=== PATIENT | female | born 1995 | race Caucasian/White ===

== ENCOUNTER 2017-12-06 06:28 | Emergency (ER) | payer OTHER ==
--- NOTE | 2017-12-06 07:06 | ED Physician Documentation ---
PD HPI ABD PAIN - Stated complaint Stated Complaint: ABD PX - Chief complaint Chief Complaint: Abd Pain - History obtained from History obtained from: Patient - History of Present Illness Timing - onset: How many hours ago (3) Timing - duration: Hours (3) Timing - details: Abrupt onset, Constant Pain level max: 7 Pain level now: 7 Quality: Aching, Pain Location: Other (R flank. RUQ) Improved by: Vomiting (nausea, with "dry heaving") Worsened by: Other (nothing) Associated symptoms: Nausea, Dysuria. No: Fever, Hematemesis, Diarrhea, Constipation, Hematuria, Vaginal bleeding, Vaginal dc Similar symptoms before: Has not had sx before Recently seen: Not recently seen Review of Systems Constitutional: denies: Fever, Chills Nose: denies: Rhinorrhea / runny nose, Congestion Throat: denies: Sore throat Respiratory: denies: Cough GI: denies: Bloody / black stool : denies: Now EGA Skin: denies: Rash Musculoskeletal: denies: Neck pain, Back pain Neurologic: denies: Headache PD PAST MEDICAL HISTORY - Past Medical History Past Medical History: No Cardiovascular: None Respiratory: None Neuro: None Endocrine/Autoimmune: None GI: None 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 : None HEENT: None Psych: None Musculoskeletal: None Derm: None - Past Surgical History Past Surgical History: No - Present Medications Home Medications: Ambulatory Orders Medication Instructions Recorded Confirmed Hydrocodone/Acetaminophen 1 - 2 each PO Q6H PRN #14 tablet 12/06/17 [Hydrocodon-Acetaminophen 5-325] Ibuprofen [Motrin] 800 mg PO Q8H PRN #30 tablet 12/06/17 Ondansetron Odt [Zofran] 4 mg TL Q6H PRN #10 tablet 12/06/17 - Allergies Allergies/Adverse Reactions: Allergies Allergy/AdvReac Type Severity Reaction Status Date / Time amoxicillin AdvReac Unknown Verified 12/06/17 06:41 - Social History Does the pt smoke?: No Smoking Status: Never smoker Does the pt drink ETOH?: No Does the pt have substance abuse?: No - Immunizations Immunizations are current?: Yes - POLST Patient has POLST: No PD ED PE NORMAL - Vitals Vital signs reviewed: Yes - General General: Alert and oriented X 3, No acute distress, Well developed/nourished - HEENT HEENT: Moist mucous membranes - Neck Neck: Supple, no meningeal sign - Cardiac Cardiac: RRR, Strong equal pulses - Respiratory Respiratory: No respiratory distress, Clear bilaterally - Abdomen Abdomen: Soft, Non distended, Other (TTP RUQ and R CVAT.) - Back Back: No spinal TTP - Derm Derm: Warm and dry, No rash - Extremities Extremities: No edema - Neuro Neuro: Alert and oriented X 3 - Psych Psych: Normal mood, Normal affect Results - Vitals Vitals: Vital Signs - 24 hr 12/06/17 12/06/17 12/06/17 06:39 08:14 09:45 Temperature 36.1 C L 36.6 C 36.8 C Heart Rate 73 93 89 Respiratory 18 15 15 Rate Blood Pressure 144/99 H 128/84 H 112/78 O2 Saturation 100 100 99 Oxygen O2 Source Room air - Labs Labs: Laboratory Tests 12/06/17 12/06/17 12/06/17 06:50 06:58 06:58 WBC 9.8 RBC 4.56 Hgb 12.3 Hct 38.4 MCV 84.1 MCH 26.9 L MCHC 31.9 L RDW 17.2 H Plt Count 278 MPV 8.2 Neut # 7.0 H Lymph # 1.8 Coal # 0.8 Eos # 0.1 Baso # 0.1 Absolute Nucleated RBC 0.00 Nucleated RBC % 0.0 Sodium 139 Potassium 3.7 Chloride 105 Carbon Dioxide 23 Anion Gap 11.0 BUN 16 Creatinine 0.8 Estimated GFR (MDRD) 91 Glucose 114 H Calcium 9.8 Total Bilirubin 0.6 AST 24 ALT 16 Alkaline Phosphatase 44 Total Protein 7.9 Albumin 4.7 Globulin 3.2 Albumin/Globulin Ratio 1.5 Lipase 23 Urine Color YELLOW Urine Clarity CLEAR Urine pH 5.5 Ur Specific [place] 1.025 Urine Protein NEGATIVE Urine Glucose (UA) NEGATIVE Urine Ketones NEGATIVE Urine Occult Blood LARGE H Urine Nitrite NEGATIVE Urine Bilirubin NEGATIVE Urine Urobilinogen 0.2 (NORMAL) Ur Leukocyte Esterase TRACE H Urine RBC TNTC H Urine WBC 4-5 Ur Squamous Epith Cells MOD Squamous H Urine Bacteria Rare Ur Microscopic Review INDICATED Urine Culture Comments NOT INDICATED Urine HCG, Qual NEGATIVE - Rads (name of study) RUQ US Radiology: Prelim report reviewed, EMP read contemporaneously, See rad report ( Cholelithiasis without evidence of cholecystitis. Mild right hydronephrosis. Possible right renal stones. ) CT abd/pelvis Radiology: Prelim report reviewed, EMP read contemporaneously, See rad report ( Small right renal stones, 4 mm stone in the proximal right ureter with mild obstruction.) PD MEDICAL DECISION MAKING - ED course Complexity details: reviewed results, re-evaluated patient, considered differential, d/w patient ED course: Patient is a 22-year-old female presents to the emergency department with right flank pain, found to have a right ureteral stone. Should pass. Will prescribe pain medications and nausea medications for home. We will have her follow-up with her PCP for further evaluation and care. No evidence of infected stone. Patient counseled regarding signs and symptoms for which I believe and urgent re -evaluation would be necessary. Patient with good understanding of and agreement to plan and is comfortable going home at this time This document was made in part using voice recognition software. While efforts are made to proofread this document, sound alike and grammatical errors may occur. Departure - Departure Disposition: 01 Home, Self Care Clinical Impression: Ureteral stone Condition: Good Instructions: ED Stone Renal W Colic Follow-Up: your,doctor in 1 week [Other] Prescriptions: Hydrocodone/Acetaminophen [Hydrocodon-Acetaminophen 5-325] 1 - 2 each PO Q6H PRN #14 tablet PRN Reason: pain Ibuprofen [Motrin] 800 mg PO Q8H PRN #30 tablet PRN Reason: PAIN &/OR FEVER Ondansetron Odt [Zofran] 4 mg TL Q6H PRN #10 tablet PRN Reason: Nausea / Vomiting Comments: Drink plenty of fluids at home. Return if you worsen. This stone should pass. Do not drink alcohol or drive while on narcotic pain medicine. Note that many narcotic pain relievers also contain tylenol/acetaminophen. Please ensure that your total dose of acetaminophen from all sources does not exceed 3 grams (3000mg) per day. You may constipated on this medication, take a stool softener such as "Colace" twice a day while you are on it. Also recommend a ijnf-sny-bkdyhtv laxative such as senna or MiraLAX any day that you do not have a bowel movement. If you received narcotic pain medication in the emergency department, do not drive or operate machinery for the next 24 hours. Discharge Date/Time: 12/06/17 09:47
[2017-12-06] MEDS ORDERED: KETOROLAC 60 MG/2 ML VIAL IVP STA (07:07)
[2017-12-06] MEDS ORDERED: ONDANSETRON 4 MG/2 ML VIAL IVP STA (07:07)
[2017-12-06] MEDS ORDERED: SODIUM CHLORIDE 0.9% 1,000 ML IV ONE ×2 (07:10)
[2017-12-06 07:15] LABS: BASOPHILS # (AUTO) 0.1 10^3/uL (0.0-0.1); BASOPHILS % (AUTO) 0.5 %; EOSINOPHILS # (AUTO) 0.1 10^3/uL (0.0-0.7); EOSINOPHILS % (AUTO) 1.5 %; HGB - HEMOGLOBIN 12.3 g/dL (12.0-16.0); LYMPHOCYTES # (AUTO) 1.8 10^3/uL (1.5-3.5); LYMPHOCYTES % (AUTO) 18.4 %; MEAN CORPUSCULAR HEMOGLOBIN 26.9 pg (27.0-31.0); MEAN CORPUSCULAR HGB CONC 31.9 g/dL (32.0-36.0); MEAN CORPUSCULAR VOLUME 84.1 fL (81.0-99.0); MEAN PLATELET VOLUME 8.2 fL (7.9-10.8); MONOCYTES # (AUTO) 0.8 10^3/uL (0.0-1.0); NEUTROPHILS % (AUTO) 71.6 %; PLT - PLATELET COUNT 278 10^3/uL (130-450); RED BLOOD COUNT 4.56 10^6/uL (4.20-5.40); RED CELL DISTRIBUTION WIDTH 17.2 % (12.0-15.0); WHITE BLOOD COUNT 9.8 x10^3/uL (4.8-10.8)
[2017-12-06] MEDS ORDERED: KETOROLAC 30 MG/ML VIAL IVP STA (07:17)
[2017-12-06 07:23] LABS: BILIRUBIN,URINE NEGATIVE (NEGATIVE); GLUCOSE, URINE (UA) NEGATIVE (NEGATIVE); KETONES,URINE (UA) NEGATIVE (NEGATIVE); LEUKOCYTE ESTERASE, URINE TRACE (NEGATIVE); NITRITE,URINE NEGATIVE (NEGATIVE); OCCULT BLOOD,URINE LARGE (NEGATIVE); PH,URINE 5.5 PH (5.0-7.5); PROTEIN,URINE NEGATIVE (NEGATIVE); UROBILINOGEN,URINE 0.2 (NORMAL) E.U./dL (NORMAL)
[2017-12-06 07:29] LABS: ALBUMIN 4.7 g/dL (3.2-5.5); ALBUMIN/GLOBULIN RATIO 1.5 (1.0-2.2); BILIRUBIN,TOTAL 0.6 mg/dL (0.2-1.0); CALCIUM 9.8 mg/dL (8.5-10.3); CREATININE 0.8 mg/dL (0.4-1.0); TOTAL PROTEIN 7.9 g/dL (6.7-8.2)
[2017-12-06 07:32] LABS: CLARITY,URINE CLEAR (CLEAR); HCG UR QUAL NEGATIVE
[2017-12-06 07:51] LABS: BACTERIA,URINE Rare /HPF (None Seen); RBC,URINE TNTC /HPF (0-5); SQUAMOUS EPITHELIAL CELL,UR MOD Squamous (<= Few)
[2017-12-06] MEDS ORDERED: LIDOCAINE-MPF 2% 4.5 ML in SODIUM CHLORIDE 0.9% 50 ML IV STA (08:15)
--- NOTE | 2017-12-06 08:17 | Ultrasound Report ---
EXAM: ABDOMEN ULTRASOUND LIMITED, RUQ EXAM DATE: 12/06/2017 08:04 AM. CLINICAL HISTORY: RUQ/R flank pain, possible GB vs Kidney. COMPARISON: None. TECHNIQUE: Real-time scanning was performed with static images obtained. FINDINGS: Liver: Normal in size and echotexture. 14.3 cm. Main portal vein flow: Hepatopetal. Gallbladder: There is a small noncalcified gallstone. There is no gallbladder wall thickening or yoon cholecystic fluid. Biliary System: CBD measures 4 mm. No intrahepatic or extrahepatic ductal dilatation. The right kidney measures 11.2 cm in length. There is mild hydronephrosis. There are 2 small echogeni c foci in the inferior pole which are nonspecific but could represent renal stones. IMPRESSION: Cholelithiasis without evidence of cholecystitis. Mild right hydronephrosis. Possible right renal stones. [facility] Referring Provider Line: [phone] SITE ID: [id number]
--- NOTE | 2017-12-06 09:17 | CT Report ---
EXAM: CT ABDOMEN AND PELVIS (CT KUB) EXAM DATE: 12/06/2017 08:51 AM. CLINICAL HISTORY: R flank pain. COMPARISONS: None. TECHNIQUE: Routine axial helical CT imaging was performed through the abdomen and pelvis without IV c ontrast. Reconstructions: Coronal and sagittal. In accordance with CT protocol optimization, one or more of the following dose reduction techniques w ere utilized for this exam: automated exposure control, adjustment of mA and/or KV based on patient s ize, or use of iterative reconstructive technique. FINDINGS: Lung Bases: Unremarkable. Right Kidney/Ureter: There are Two 2 mm right renal stones. There is a 4 mm stone in the proximal rig ht ureter. There is minimal perinephric stranding. Left Kidney/Ureter: No stones, hydronephrosis, or hydroureter. No perinephric fat stranding. Other Solid Organs: Noncontrast images of the solid organs are grossly unremarkable. Gallbladder/Bile Ducts: Unremarkable. Peritoneal Cavity: No free fluid, free air or rambo adenopathy. Bowel is grossly unremarkable. There is an appendicolith. The appendix has an otherwise normal CT appearance. Pelvic Organs: No bladder stones or wall thickening. Noncontrast images of the visualized pelvic orga ns are unremarkable. Vasculature: Unremarkable. No bone lesions. IMPRESSION: There are small right renal stones. There is a 4 mm stone in the proximal right ureter with mild obst ruction. [facility] Referring Provider Line: [phone] SITE ID: [id number]
[2017-12-06 09:47] VITALS: BP 112/78
== END 2017-12-06 09:47 | disposition home or self-care (01) ==
LOC: ED 06:28
DX: N13.2 Hydronephrosis with renal and ureteral calculous obstruction (principal); K80.20 Calculus of gallbladder without cholecystitis without obstruction
CPT/HCPCS: 36415; 74176; 76705; 80053; 81001; 81025; 83690; 85025; 96361; 96374; 96375; 99283; J7040; 81003; 87086

== ENCOUNTER 2020-03-31 08:59 | Observation (INO) | payer OTHER ==
--- NOTE | 2020-03-31 09:13 | ED Physician Documentation ---
PD HPI ABD PAIN - Stated complaint Stated Complaint: ABD PX - Chief complaint Chief Complaint: Abd Pain - History obtained from History obtained from: Patient - History of Present Illness Timing - onset: How many days ago (1) Timing - duration: Days (onset mid abd pain 1 days ago (yesterday morning), continued through the night and into today, worsening. Pain started mid abd and moved/localized to RLQ. Persists and worse there.) Timing - details: Gradual onset Quality: Aching, Sharp, Pain Location: Periumbilical, RLQ Radiation: No: Right flank Improved by: Laying still Worsened by: Eating (yesterday - has not had anything to eat today), Moving, Palpation Associated symptoms: Nausea, Vomiting (couple times yesterday). No: Fever, Diarrhea, Constipation, Dysuria, Vaginal bleeding (Last period was couple weeks ago. She has Nexplanon for control.), Vaginal dc Similar symptoms before: Has not had sx before Recently seen: Not recently seen Review of Systems Constitutional: reports: Myalgias. denies: Fever Nose: denies: Rhinorrhea / runny nose, Congestion Throat: denies: Sore throat Cardiac: denies: Chest pain / pressure Respiratory: denies: Cough GI: reports: Abdominal Pain, Nausea, Vomiting. 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 : None HEENT: None Psych: None Musculoskeletal: None Derm: None - Past Surgical History Past Surgical History: No - Present Medications Home Medications: Ambulatory Orders Medication Instructions Recorded Confirmed Hydrocodone/Acetaminophen 1 - 2 each PO Q6H PRN #14 tablet 12/06/17 [Hydrocodon-Acetaminophen 5-325] Ibuprofen [Motrin] 800 mg PO Q8H PRN #30 tablet 12/06/17 Ondansetron Odt [Zofran] 4 mg TL Q6H PRN #10 tablet 12/06/17 - Allergies Allergies/Adverse Reactions: Allergies Allergy/AdvReac Type Severity Reaction Status Date / Time amoxicillin AdvReac Unknown Verified 03/31/20 09:06 - Social History Does the pt smoke?: No Smoking Status: Never smoker Does the pt drink ETOH?: No Does the pt have substance abuse?: No - Immunizations Immunizations are current?: Yes - POLST Patient has POLST: No PD ED PE NORMAL - Vitals Vital signs reviewed: Yes - General General: Alert and oriented X 3, Well developed/nourished, Other (Appears in pain) - HEENT HEENT: Pharynx benign - Neck Neck: Supple, no meningeal sign, No adenopathy - Cardiac Cardiac: RRR, No murmur - Respiratory Respiratory: Clear bilaterally - Abdomen Abdomen: Non distended, No organomegaly, Other (She is markedly tender in the right upper quadrant with percussion rebound and referred tenderness to that area. Her hurts for her to lift her right leg. The rest of the abdomen does not have tenderness. There is no distention. Bowel sounds are hypoactive) - Female Female : Deferred - Rectal Rectal: Deferred - Back Back: No CVA TTP - Derm Derm: Normal color, Warm and dry - Extremities Extremities: No tenderness to palpate, Normal ROM s pain, No edema, No calf tenderness / cord - Neuro Neuro: Alert and oriented X 3, No motor deficit, Normal speech Results - Vitals Vitals: Vital Signs - 24 hr 03/31/20 03/31/20 03/31/20 09:07 10:30 10:51 Temperature 37 C Heart Rate 109 H 118 H 122 H Respiratory 16 18 16 Rate Blood Pressure 110/76 118/79 129/81 H O2 Saturation 98 99 96 Oxygen O2 Source Room air - Labs Labs: Laboratory Tests 03/31/20 03/31/20 03/31/20 09:20 09:20 09:20 WBC 17.0 H RBC 4.22 Hgb 13.0 Hct 38.1 MCV 90.3 MCH 30.8 MCHC 34.1 RDW 12.5 Plt Count 264 MPV 9.7 Neut # (Auto) 13.6 H Lymph # (Auto) 1.8 [place] # (Auto) 1.4 H Eos # (Auto) 0.0 Baso # (Auto) 0.0 Absolute Nucleated RBC 0.00 Nucleated RBC % 0.0 Sodium 135 Potassium 3.6 Chloride 100 L Carbon Dioxide 25 Anion Gap 10.0 BUN 13 Creatinine 0.8 Estimated GFR (MDRD) 90 Glucose 107 H Calcium 9.1 Total Bilirubin 1.2 H AST 21 ALT 15 Alkaline Phosphatase 40 L Total Protein 7.9 Albumin 4.3 Globulin 3.6 Albumin/Globulin Ratio 1.2 Lipase 41 Urine Color YELLOW Urine Clarity SL. CLOUDY Urine pH 6.0 Ur Specific [place] 1.025 Urine Protein TRACE Urine Glucose (UA) NEGATIVE Urine Ketones >=80 H Urine Occult Blood NEGATIVE Urine Nitrite NEGATIVE Urine Bilirubin NEGATIVE Urine Urobilinogen 0.2 (NORMAL) Ur Leukocyte Esterase SMALL H Urine RBC 0-5 Urine WBC 11-25 H Ur Squamous Epith Cells MOD Squamous H Urine Bacteria Few Ur Microscopic Review INDICATED Urine Culture Comments NOT INDICATED Urine HCG, Qual 03/31/20 09:20 WBC RBC Hgb Hct MCV MCH MCHC RDW Plt Count MPV Neut # (Auto) Lymph # (Auto) [place] # (Auto) Eos # (Auto) Baso # (Auto) Absolute Nucleated RBC Nucleated RBC % Sodium Potassium Chloride Carbon Dioxide Anion Gap BUN Creatinine Estimated GFR (MDRD) Glucose Calcium Total Bilirubin AST ALT Alkaline Phosphatase Total Protein Albumin Globulin Albumin/Globulin Ratio Lipase Urine Color Urine Clarity Urine pH Ur Specific [place] 1.025 Urine Protein Urine Glucose (UA) Urine Ketones Urine Occult Blood Urine Nitrite Urine Bilirubin Urine Urobilinogen Ur Leukocyte Esterase Urine RBC Urine WBC Ur Squamous Epith Cells Urine Bacteria Ur Microscopic Review Urine Culture Comments Urine HCG, Qual NEGATIVE - Rads (name of study) abd/pelvic CT Radiology: Prelim report reviewed (Swelling of the appendix with an appendicolith consistent with acute appendicitis. No perforation or abscess), See rad report PD MEDICAL DECISION MAKING - ED course Complexity details: reviewed results (Acute appendicitis), considered differential (Main concern for acute appendicitis. Consider urinary tract infection as well. She should not be with a Nexplanon implant. But will check status as well. I would go directly to CT after discussing with the patient as I feel that is the highest likelihood test. ), d/w patient, d/w media consultant (Surgery) Departure - Departure Disposition: ED Transfer to [facility] Clinical Impression: Abdominal pain, Appendicitis
[2020-03-31 09:29] LABS: GLUCOSE, URINE (UA) NEGATIVE (NEGATIVE); HCG UR QUAL NEGATIVE; KETONES,URINE (UA) >=80 mg/dL (NEGATIVE); LEUKOCYTE ESTERASE, URINE SMALL (NEGATIVE); NITRITE,URINE NEGATIVE (NEGATIVE); OCCULT BLOOD,URINE NEGATIVE (NEGATIVE); PROTEIN,URINE TRACE mg/dL (NEGATIVE); UROBILINOGEN,URINE 0.2 (NORMAL) E.U./dL (NORMAL)
[2020-03-31 09:31] LABS: BASOPHILS % (AUTO) 0.2 %; EOSINOPHILS % (AUTO) 0.1 %; LYMPHOCYTES # (AUTO) 1.8 10^3/uL (1.5-3.5); LYMPHOCYTES % (AUTO) 10.5 %; MEAN CORPUSCULAR HEMOGLOBIN 30.8 pg (27.0-31.0); MEAN CORPUSCULAR HGB CONC 34.1 g/dL (32.0-36.0); MEAN CORPUSCULAR VOLUME 90.3 fL (81.0-99.0); MEAN PLATELET VOLUME 9.7 fL (7.9-10.8); MONOCYTES # (AUTO) 1.4 10^3/uL (0.0-1.0); MONOCYTES % (AUTO) 8.2 %; NEUTROPHILS # (AUTO) 13.6 10^3/uL (1.5-6.6); NEUTROPHILS % (AUTO) 80.4 %; PLT - PLATELET COUNT 264 10^3/uL (130-450); RED BLOOD COUNT 4.22 10^6/uL (4.20-5.40); RED CELL DISTRIBUTION WIDTH 12.5 % (12.0-15.0)
[2020-03-31 09:37] LABS: BILIRUBIN,URINE NEGATIVE (NEGATIVE); CLARITY,URINE SL. CLOUDY (CLEAR); ICTOTEST,URINE NEGATIVE
[2020-03-31] MEDS ORDERED: SODIUM CHLORIDE 0.9% 1,000 ML IV STA (09:42)
[2020-03-31] MEDS ORDERED: ONDANSETRON 4 MG/2 ML VIAL IVP STA (09:42)
[2020-03-31] MEDS ORDERED: HYDROmorphone 1 MG/ML CARPUJECT IVP STA ×2 (09:42→10:53)
[2020-03-31 09:43] LABS: ALBUMIN 4.3 g/dL (3.2-5.5); ALBUMIN/GLOBULIN RATIO 1.2 (1.0-2.2); BILIRUBIN,TOTAL 1.2 mg/dL (0.2-1.0); CALCIUM 9.1 mg/dL (8.5-10.3); CREATININE 0.8 mg/dL (0.4-1.0); RBC,URINE 0-5 /HPF (0-5); SQUAMOUS EPITHELIAL CELL,UR MOD Squamous (<= Few); TOTAL PROTEIN 7.9 g/dL (6.7-8.2)
[2020-03-31 09:44] LABS: BACTERIA,URINE Few /HPF (None Seen)
[2020-03-31] MEDS ORDERED: IOVERSOL 320 100 ML VIAL IVP ONE ×2 (09:53→10:11)
[2020-03-31] MEDS ORDERED: cefTRIAXone 1 GM VIAL IVP STA (10:09)
[2020-03-31] MEDS ORDERED: metroNIDAZOLE 500 MG/100 ML 500 MG/100 ML BAG IV ONE (10:09)
--- NOTE | 2020-03-31 10:18 | CT Report ---
PROCEDURE: Abdomen/Pelvis W INDICATIONS: RLQ pain for 1 1/2 days CONTRAST: IV CONTRAST: Isovue 370 ml: 100 PO CONTRAST: *NO PO CONTRAST TECHNIQUE: After the administration of oral and intravenous contrast, 5 mm thick sections acquired from the diap hragms to the symphysis. 5 mm thick coronal and sagittal reformats were acquired. For radiation dos e reduction, the following was used: automated exposure control, adjustment of mA and/or kV accordin g to patient size. COMPARISON: None. FINDINGS: Image quality: Excellent. ABDOMEN: Lung bases: Lung bases are clear. Heart size is normal. Solid organs: Liver and spleen are normal in size and enhancement. Gallbladder is within normal parish its Biliary system is non dilated. Pancreas enhances normally. No adrenal nodules. Kidneys demons trate normal size and enhancement, without hydronephrosis. Peritoneum and bowel: There is no bowel obstruction. Appendix is enlarged with extensive periappendic eal fat stranding and appendiceal wall thickening. 8 mm calcification is noted in proximal appendicea l lumen consistent with appendicolith. No abscess collection is seen. No peritoneal free air. No othe r area of abnormal bowel wall thickening. Nodes and vessels: No retroperitoneal or mesenteric adenopathy by size criteria. Aorta and inferior vena cava are normal in size. Miscellaneous: No ventral hernias. PELVIS: Genitourinary: Bladder wall thickness is normal. Miscellaneous: No inguinal hernias or adenopathy. Likely physiologic fluid in lower pelvis. Bones: No suspicious bony lesions. No vertebral body compression fractures. IMPRESSION: 1. Finding is consistent with acute appendicitis with appendicolith and proximal appendiceal lumen. N o abscess collection. No signs of perforation. No peritoneal free air. 2. Small amount of physiologic fluid in lower pelvis.. Reviewed by: Roderick Weinberg MD on 03/31/2020 10:17 AM PDT Approved by: Roderick Weinberg MD on 03/31/2020 10:17 AM PDT Station ID: [id number]
[2020-03-31] MEDS ORDERED: HYDROmorphone 1 MG/ML CARPUJECT ONE (11:00)
[2020-03-31] MEDS ORDERED: LIDOCAINE 1%-EPI 1:100000 20 ML MDV ONE (11:26)
[2020-03-31] MEDS ORDERED: BUPIVACAINE 0.5% PF 30 ML VIAL ONE (11:26)
[2020-03-31] MEDS ORDERED: ROPIVACAINE 0.5% PF 20 ML AMPULE ONE (11:35)
--- NOTE | 2020-03-31 11:35 | ANESTHESIA ---
Pre-Anesthesia VS, & Labs - Diagnosis acute appendicitis - Procedure laparoscopic appendectomy Vital Signs: Temp Pulse Resp BP Pulse Ox 37 C 122 H 16 129/81 H 96 03/31/20 09:07 03/31/20 10:51 03/31/20 10:51 03/31/20 10:51 03/31/20 10:51 Height 5 ft 1 in Weight (kg) 63.503 kg Body Mass Index 26.4 - NPO >8 hours - Is Patient ?: No - Lab Results Current Lab Results: Laboratory Tests 03/31/20 09:20: Sodium 135, Potassium 3.6, Chloride 100 L, Carbon Dioxide 25, Anion Gap 10.0, BUN 13, Creatinine 0.8, Estimated GFR (MDRD) 90, Glucose 107 H, Calcium 9.1, Total Bilirubin 1.2 H, AST 21, ALT 15, Alkaline Phosphatase 40 L, Total Protein 7.9, Albumin 4.3, Globulin 3.6, Albumin/Globulin Ratio 1.2, Lipase 41 03/31/20 09:20: WBC 17.0 H, RBC 4.22, Hgb 13.0, Hct 38.1, MCV 90.3, MCH 30.8, MCHC 34.1, RDW 12.5, Plt Count 264, MPV 9.7, Neut # (Auto) 13.6 H, Lymph # (Auto) 1.8, [place] # (Auto) 1.4 H, Eos # (Auto) 0.0, Baso # (Auto) 0.0, Absolute Nucleated RBC 0.00, Nucleated RBC % 0.0 Lab results reviewed: Yes Fish Bones: 03/31/20 09:20 03/31/20 09:20 Home Medications and Allergies Allergies/Adverse Reactions: Allergies Allergy/AdvReac Type Severity Reaction Status Date / Time amoxicillin AdvReac Unknown Verified 03/31/20 09:06 Anes History & Medical History - Anesthetic History Anesthesia Complications: reports: No previous complications Family history of Anesthesia Complications: Denies Family history of Malignant Hyperthermia: Denies - Medical History Cardiovascular: reports: None Pulmonary: reports: None Gastrointestinal: reports: None Urinary: reports: None Musculoskeletal: reports: None Endocrine/Autoimmune: reports: None Blood Disorders: reports: None Skin: reports: None Smoking Status: Never smoker Exam General: Alert, Oriented x3, Cooperative Dental: WNL Mouth Openin Fingerbreadth Neck Mobility: Normal Mallampati classification: II Thyromental Distance: greater than 6 cm Respiratory: Lungs clear, Normal breath sounds, No respiratory distress Cardiovascular: Regular rate Neurological: Normal speech Mental/Cognitive Status: Alert/Oriented X3, Normal for patient Cognitive Status: Within normal limits Plan Anesthesia Type: General, Transverse Abdominis Plane (TAP) Block Consent for Procedure(s) Verified and Reviewed: Yes Code Status: Attempt Resuscitation ASA classification: 1-Healthy patient Is this case an emergency?: Yes
--- NOTE | 2020-03-31 11:58 | SURGERY HX AND PHYSICAL(T) ---
Surgical History & Physical - Chief Complaint/HPI Chief Complaint: Abdominal pain History of Present Illness: 24yo F with 1 day h/o periumbilical pain migrating to RLQ. No diarrhea. + N/V. 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 Is Patient ?: No Urinary: None Musculoskeletal: None Blood Disorders: None Psychiatric: None Smoking Status: Never smoker Does the pt drink ETOH?: No Does the pt have substance abuse?: No - Home Meds and Allergies Allergies/Adverse Reactions: Allergies Allergy/AdvReac Type Severity Reaction Status Date / Time amoxicillin AdvReac Unknown Verified 03/31/20 09:06 - Review of Systems Constitutional: No: Fatigue, Fever, Chills, Malaise, Weakness, Poor appetite, Diaphoresis, Night sweats, Weight gain, Weight loss, Other HEENT: No: Headaches, Visual changes, Eye pain, Dysphasia, Sinus congestion, Post nasal drip, Sore throat, Other Cardiac: No: AFIB, CAD, CHF, HTN, [place], Syncope, Hyperlipidemia, Mitral valve stenosis, Aortic stenosis, Valve insufficiency, Pulmonary hypertension Respiratory: No: Shortness of breath, Cough, Sputum, Other Hematologic: No: Anemia, Bleeding or bruising, Other Psychiatric: No: Depression, Anxiety, Other - Vital Signs Heart Rate: 122 Blood Pressure: 129/81 Temperature: 37 C Respiratory Rate: 16 O2 Saturation: 96 Weight (kg): 63.503 kg Height: 1.55 m - Physical Exam Eyes Bilatera: positive: Normal inspection, PERRL Neck: positive: Nml inspection Respiratory: positive: Chest non-tender Abdomen: positive: Tenderness, Guarding, Rebound - Patient Review Patient Review: Problems were reviewed with the patient during this visit. Medications were reviewed with the patient during this visit. Allergies were reviewed this patient during this visit. Pertinent Tests Reviewed: All pertitent test for this patient were reviewed. - Assessment & Plan Assessment and Plan: OR for Lap Appendectomy for acute appendicitis - Lap intervention - NPO, IVF, bowel rest - admission
[2020-03-31] MEDS ORDERED: ONDANSETRON 4 MG/2 ML VIAL IVP ONE (12:04)
[2020-03-31] MEDS ORDERED: GLYCOPYRROLATE 1 MG/5 ML VIAL IVP ONE (12:04)
[2020-03-31] MEDS ORDERED: fentaNYL 100 MCG/2 ML VIAL IVP ONE (12:04)
[2020-03-31] MEDS ORDERED: NEOSTIGMINE 1 MG/1 ML 10 ML MDV IVP ONE (12:04)
[2020-03-31] MEDS ORDERED: PROPOFOL 200 MG/20 ML VIAL IVP ONE (12:04)
[2020-03-31] MEDS ORDERED: LIDOCAINE-MPF 2% 5 ML VIAL IM ONE (12:04)
[2020-03-31] MEDS ORDERED: ROCURONIUM 50 MG/5 ML VIAL IVP ONE (12:04)
[2020-03-31] MEDS ORDERED: ACETAMINOPHEN 1,000 MG/100 ML 100 ML IV ONE (12:04)
[2020-03-31] MEDS ORDERED: DEXAMETHASONE 4 MG/ML VIAL IVP ONE (12:04)
[2020-03-31] MEDS ORDERED: LACTATED RINGERS 1,000 ML IV ONE ×3 (12:46→15:46)
[2020-03-31] MEDS: fentaNYL 100 MCG/2 ML VIAL ONE ×2 (15:13→15:20)
[2020-03-31] MEDS ORDERED: SODIUM CHLORIDE FLUSH 0.9% 10 ML SYRINGE IVP PRN (15:53)
[2020-03-31] MEDS ORDERED: oxyCODONE 5 MG TABLET PO PRN (15:56)
[2020-03-31] MEDS ORDERED: ONDANSETRON 4 MG/2 ML VIAL IVP PRN (15:56)
--- NOTE | 2020-03-31 16:02 | OPERATIVE REPORT ---
Operative Report - General Admit Date: 03/31/20 Procedure Date: 03/31/20 Planned Procedure: 1. Diagnostic laparoscopy 2. Laparoscopic appendectomy Pre-Op Diagnosis: Appendicitis, sepsis, abdominal pain. Procedure Performed: 1. Diagnostic laparoscopy 2. Laparoscopic appendectomy 3. Extensive lysis of adhesions 4. Partial cecectomy 5. Abdominal washout 6. Open umbilical hernia repair 7. Tap block per anesthesia 8. Drain placement Post Op Diagnosis: Same, early suppurative appendicitis, early abscess - Procedure Note Primary Surgeon: Key Secondary Surgeon: Skip Anesthesia Provider: Anesthesia Technique: General ET tube, Regional block Pathology: Appendix, portion of cecum, fold of Treves Estimated Blood Loss (mL): 25 Indications: 24-year-old female presenting with 1 day of abdominal pain. Work-up included CT scan as well as lab evaluation. Patient notable for a leukocytosis, imaging with significantly dilated appendicitis with inflammatory changes. Patient with fevers amongst others and concerns for sepsis. Opted to proceed to the operating room urgently for laparoscopic intervention. Findings: Significant induration noted at the level of the appendix which was tightly adhered to the cecum and ascending colon along the pelvic sidewall and right abdomen. This was densely adhered and consistent with inflammatory changes likely longer than 1 day. This resulted in extensive early phlegmonous change however no definitive perforation was identified, neither feculent nor purulent peritonitis appreciated. Partial cystectomy was necessary which was performed with Endo JIMMY blue loads given the associated tissue edema. Mesoappendix was divided using steel load multiple firings. Raw surfaces were dressed for bleeding using cautery and Surgicel which was hemostatic at the conclusion of this case. Right ureter was identified and protected throughout. Ileocecal valve was intact and patent. Complications: NONE - Other Other Information/Narrative: OPERATIVE PROCEDURE: The patient was taken to the operating room, placed supine on the operating table. The patent was already obtained tor informed consent which was documented in the patients permanent medical record The patient was induced for general endotracheal anesthesia. The patient was positioned, off loaded and padded at all pressure points. The patient was placed for a Leblanc catheter and tucked for the left arm. The patient was prepped and draped in the usual sterile fashion. The patient was called for a time out which was agreed to all in the room. Patient was removed for her umbilical piercing preoperatively, and was placed for silk through the tract to prevent premature closure. Open Brumfield technique was performed through umbilicus and umbilical trocar was placed. This was achieved with a circumlinear yoon-umbilical incision. This is taken through the subcutaneous fat, the umbilical stalk was dissected off and obvious hernia defect was appreciated. This was done without any injury to the umbilical skin. That [place] defect was enlarged and accommodated Brumfield trocar without any complication. Insufflation was commenced which the patient tolerated to 15 mmHg well with no complication. Additional trocars were placed suprapubic and left lower quadrant under direct laparoscopic vision. At this time the patient was placed in Trendelenburg position with right side up and we proceeded to isolate the cecum which was densely adhered to the sidewall. Please see above under findings for the specifics as a relates to this case. Patient had dense adhesions which necessitated careful mobilization of the appendix with significant induration and early phlegmonous change from the surrounding structures. Patient was identified and protected for the ureter throughout the entirety of this case. Patient was preserved for the ileocecal valve which would not compromise throughout the entirety of this case. Please note partial cecectomy was necessary given the local tissue edema. The appendix was continued to be mobilized and thereafter we achieved mobilization medially taking care to note the location of the ureter which was protected and identified throughout the entirety at this case especially given the extent of the patients inflammatory changes. Ultimately the cecum was isolated free, and the appendix was thereafter completely mobilized off the abdominal and pelvic sidewall. At this time there were dense adhesions noted of the appendix to the ascending colon and cecum and this required careful dissection as well, both blunt and also using the suction cognos developer and Bovie electrocautery, laparoscopic, as well as countertraction. At this time a [place] was used to dissect the cecal-appendiceal junction and thereafter using a ENDOGIA linear cutting stapler, the appendix was divided at the base to include portion at the cecum. The ileocecal valve was identified and protected throughout with no involvement. Please note that we proceeded with [employer] Endo JIMMY stapler blue loads for the partial cecectomy and en bloc appendectomy. Steel load was used to divide the mesial appendix with hemostasis achieved. At this time, we continued to mobilize the appendix off the ascending colon and caecum making sure there was no inadvertent injury to the ascending colon and the cecum which was again densely adhered to the appendix. This was performed with great care using blunt as well as sharp dissection and ultimately isolated and dissected free the appendix which was placed into an Endo Catch bag for control of any further spillage. The appendiceal staple line and mesoappendix staple line and ligature were evaluated and hemostatic. Surgicel was placed prophylactically given the significant inflammatory changes. Hemostasis was achieved with Bovie electrocautery. At this time, we extensively irrigated the abdomen with greater than 2 liters of sterile saline and aspirated clear. At this time all trochars, secondary, were removed under direct laparoscopic visualization with no consequent bleeding. We removed the Brumfield trocar, passed the specimen off for permanent pathology. We closed the umbilical defect with several [id number]'s of 0 Vicryl, and performed umbilicoplasty simultaneous. All skin and subcutaneous tissue was reapproximated with a subcuticular of 4-0 Monocryl. Wounds were dressed with Dermabond. Patient was performed for tap block and no additional local was used at this time. I was present for the entirety of this operative intervention patient tolerated procedure well which is no complication. All counts were sponges needles and instruments were correct at the conclusion of this operative case.
[2020-03-31] MEDS: SODIUM CHLORIDE FLUSH 0.9% 10 ML SYRINGE IVP SCH (17:07)
[2020-03-31] MEDS: D5NS W/20 MEQ KCL 1,000 ML IV SCH (17:07)
[2020-03-31] MEDS: KETOROLAC 30 MG/ML VIAL IVP SCH (17:28)
[2020-03-31] MEDS: CIPROFLOXACIN 400 MG/200 ML 400 MG/200 ML BAG IV SCH (17:29)
[2020-03-31] MEDS: ACETAMINOPHEN 1,000 MG/100 ML 100 ML IV SCH (17:29)
[2020-03-31] MEDS: methocarbamoL 500 MG TABLET PO SCH (18:10)
[2020-03-31] MEDS: METOCLOPRAMIDE 10 MG/2 ML VIAL IVP SCH (18:10)
[2020-03-31] MEDS: metroNIDAZOLE 500 MG/100 ML 500 MG/100 ML BAG IV SCH (18:19)
[2020-03-31] MEDS ORDERED: ACETAMINOPHEN 160 MG/5 ML SUSP UDC PO PRN (20:50)
[2020-03-31] MEDS: DOCUSATE SODIUM 100 MG CAPSULE PO SCH (22:08)
[2020-03-31] MEDS: polyethylene glycoL 3350 17 GM PACKET PO SCH (22:09)
[2020-04-01] MEDS: ACETAMINOPHEN 1,000 MG/100 ML 100 ML IV SCH ×2 (00:09→05:29)
[2020-04-01] MEDS: methocarbamoL 500 MG TABLET PO SCH ×4 (00:10→17:32)
[2020-04-01] MEDS: METOCLOPRAMIDE 10 MG/2 ML VIAL IVP SCH ×4 (00:10→17:31)
[2020-04-01] MEDS: KETOROLAC 30 MG/ML VIAL IVP SCH ×4 (00:10→17:31)
[2020-04-01] MEDS: D5NS W/20 MEQ KCL 1,000 ML IV SCH ×3 (00:12→14:42)
[2020-04-01] MEDS: SODIUM CHLORIDE FLUSH 0.9% 10 ML SYRINGE IVP SCH ×3 (00:28→17:31)
[2020-04-01] MEDS: metroNIDAZOLE 500 MG/100 ML 500 MG/100 ML BAG IV SCH ×3 (02:21→18:48)
[2020-04-01] MEDS: CIPROFLOXACIN 400 MG/200 ML 400 MG/200 ML BAG IV SCH ×2 (05:41→17:35)
[2020-04-01 06:24] LABS: BASOPHILS % (AUTO) 0.2 %; LYMPHOCYTES # (AUTO) 1.9 10^3/uL (1.5-3.5); LYMPHOCYTES % (AUTO) 14.6 %; MEAN CORPUSCULAR HGB CONC 32.9 g/dL (32.0-36.0); MEAN CORPUSCULAR VOLUME 91.3 fL (81.0-99.0); MEAN PLATELET VOLUME 9.9 fL (7.9-10.8); MONOCYTES # (AUTO) 1.3 10^3/uL (0.0-1.0); MONOCYTES % (AUTO) 9.7 %; NEUTROPHILS # (AUTO) 9.9 10^3/uL (1.5-6.6); NEUTROPHILS % (AUTO) 74.7 %; PLT - PLATELET COUNT 203 10^3/uL (130-450); RED BLOOD COUNT 3.33 10^6/uL (4.20-5.40); WHITE BLOOD COUNT 13.3 x10^3/uL (4.8-10.8)
[2020-04-01 06:39] LABS: ALBUMIN 2.9 g/dL (3.2-5.5); ALBUMIN/GLOBULIN RATIO 1.1 (1.0-2.2); BILIRUBIN,TOTAL 0.5 mg/dL (0.2-1.0); CREATININE 0.6 mg/dL (0.4-1.0); TOTAL PROTEIN 5.6 g/dL (6.7-8.2)
[2020-04-01] MEDS: DOCUSATE SODIUM 100 MG CAPSULE PO SCH ×2 (11:37→20:11)
[2020-04-01] MEDS: polyethylene glycoL 3350 17 GM PACKET PO SCH ×2 (11:37→20:11)
--- NOTE | 2020-04-01 14:08 | Discharge Plan ---
Discharge Plan Problem Reviewed?: Yes Disposition: [facility] DC[facility] Condition: Good Prescriptions: oxyCODONE [Roxicodone] 5 mg PO Q4HR PRN #24 tablet PRN Reason: Pain methocarbamoL [Robaxin] 500 mg PO Q6HR PRN #30 tablet PRN Reason: Spasms Ciprofloxacin HCl [Cipro] 500 mg PO BID 7 Days #14 tablet metroNIDAZOLE [Flagyl] 500 mg PO TID #21 tablet Diet: Regular Activity Restrictions: no heavy lifting/pushing Shower Restrictions: Yes Driving Restrictions: Yes (No driving on narcotis) Instruction Topics: Appendectomy Laparoscopic [facility] Health Concerns: DISCHARGE INSTRUCTIONS TEMPLATE: No heavy lifting, pushing, or pulling. Stairs are allowed, no strenuous/exertional activities. 5-10lbs weight carrying limit (i.e. gallon of milk) If provided, abdominal binder while out of bed and while ambulating. Call or proceed to clinic/ER for fevers, severe pain, nausea, vomiting, inability to pass flatus/stool, bleeding, wound redness/discharge, weakness, excessively loose stool/diarrhea, or for any other reasonably worrisome symptom or concern. Soft diet, no raw vegetables, avoid high fiber foods. Colace 100mg by mouth twice to three times daily while taking narcotic pain medication. If no bowel movement in 24-48hr, may take 17g Miralax in 8oz water twice daily until bowel movement. May shower, no submersive bathing. Follow up in clinic in 2-4 weeks for wound check and staple removal. No driving while taking narcotic pain medications. Follow up with primary care provider and/or medical subspecialist following discharge as well. Take antibiotics as instructed. Plan of Treatment: Continue antibiotics as instructed. Pain management, with bowel regimen, as instructed. F/U in 2 weeks. Assessment: Appropriate for discharge. No Smoking: If you smoke, Please STOP! Call for help. Follow-up with: [facility] CHRISTENSEN [Primary Care Provider] - Vikas Mackey MD [Provider Admit Priv/Credential] -
--- NOTE | 2020-04-01 20:33 | DISCHARGE SUMMARY ---
"Discharge Summary Admit Date: 03/31/20 Discharge Date: 04/01/20 Discharging Provider: Key Code Status: Attempt Resuscitation Condition at Discharge: Good Discharge Disposition: [facility] DC[facility]Xf - DIAGNOSES Admission Diagnoses: 1. Acute appendicitis 2. Abdominal sepsis 3. Abdominal pain Discharge Diagnoses with Status of Each Condition: 1. Acute appendicitis - RESOLVED 2. Abdominal pain - RESOLVED 3. Abdominal sepsis - RESOLVED 4. Suppurative nonperforated appendicitis - RESOLVED 5. Early abscess with phlegmonous changes - RESOLVED 6. Abdominal adhesions - RESOLVED 7. Umbilical hernia - RESOLVED - HPI History of Present Illness: 24-year-old female with 1 day history of abdominal pain associated nausea and vomiting. Febrile episode. - CONSULTS | PROCEDURES Consultations: Anesthesia Procedures: 1. Diagnostic laparoscopy 2. Laparoscopic appendectomy 3. Extensive lysis of adhesions 4. Drainage of abscess 5. Abdominal washout 6. Open umbilical hernia repair 7. Tap block per anesthesia 8. PARTIAL CECECTOMY - HOSPITAL COURSE Hospital Course: Patient admitted with acute appendicitis. Patient underwent operative intervention as listed in the electronic medical record. Tolerated procedure well for which there was no complication. Postoperatively the patient was managed for postoperative analgesia and resumption of bowel function. Patient had successfully passed trial of void. Tolerated oral intake without any complication. Denied nausea denied vomiting. Was advanced for diet without any complication. Was counseled that given aaron dence of suppuration in the setting of the patient's acute appendicitis would recommend continued antibiotics for 2 weeks; patient was maintained on antibiotics during the hospital stay. Discharge instructions given. Analgesia with NARCOTICS provided at time of discharge. Patient plan for follow-up and will be notified of pathology once returned. - ALLERGIES Allergies/Adverse Reactions: Allergies Allergy/AdvReac Type Severity Reaction Status Date / Time amoxicillin AdvReac Unknown Verified 03/31/20 09:06 - MEDICATIONS Home Medications: Ambulatory Orders Medication Instructions Recorded Confirmed Ciprofloxacin HCl [Cipro] 500 mg PO BID 7 Days #14 tablet 04/01/20 RX: methocarbamoL [Robaxin] 500 mg PO Q6HR PRN #30 tablet 04/01/20 RX: oxyCODONE [Roxicodone] 5 mg PO Q4HR PRN #24 tablet 04/01/20 RX: polyethylene glycoL 3350 17 gm PO BID packet 04/01/20 [Miralax] metroNIDAZOLE [Flagyl] 500 mg PO TID #21 tablet 04/01/20 - PHYSICAL EXAM AT DISCHARGE General Appearance: positive: No acute distress Eyes Bilateral: positive: Normal inspection, PERRL, EOMI ENT: positive: Pharynx nml Neck: positive: Nml inspection Respiratory: positive: Chest non-tender, No respiratory distress, Breath sounds nml. negative: Wheezes, Rales, Rhonchi Cardiovascular: positive: Regular rate & rhythm Abdomen: positive: Tenderness, Other (Abdomen soft, nondistended, appropriately tender to palpation, no rebound, no guarding. Wounds clean dry and intact.). negative: No distention, Guarding, Rebound Skin: positive: Color nml Extremities: positive: Non-tender Neurologic/Psychiatric: positive: Oriented x3, CN's nml (2-12) - LABS Result Diagrams: 04/01/20 05:55 04/01/20 05:55 - DIAGNOSTIC IMAGING Diagnostic Imaging Results: Final report reviewed - SEPSIS Current Stage of Sepsis: Resolved Possible source of Sepsis: GI tract/intra-abdominal - FOLLOW UP Follow Up: DISCHARGE INSTRUCTIONS TEMPLATE: No heavy lifting, pushing, or pulling. Stairs are allowed, no strenuous/exertional activities. 5-10lbs weight carrying limit (i.e. gallon of milk) If provided, abdominal binder while out of bed and while ambulating. Call or proceed to clinic/ER for fevers, severe pain, nausea, vomiting, inability to pass flatus/stool, bleeding, wound redness/discharge, weakness, excessively loose stool/diarrhea, or for any other reasonably worrisome symptom or concern. Soft diet, no raw vegetables, avoid high fiber foods. Colace 100mg by mouth twice to three times daily while taking narcotic pain medication. If no bowel movement in 24-48hr, may take 17g Miralax in 8oz water twice daily until bowel movement. May shower, no submersive bathing. Follow up in clinic in 2-4 weeks for wound check and staple removal. No driving while taking narcotic pain medications. Follow up with primary care provider and/or medical subspecialist following discharge as well. Complete antibiotics as per instructions given suppurative appendicitis with early abscess."
[2020-04-01 20:54] VITALS: BP 109/58
== END 2020-04-01 21:07 | disposition home or self-care (01) ==
LOC: ED 08:59 → SDS 11:10 → MS2 15:44 → SDS 15:52 → MS2 15:53
PROVIDERS: ADMIT Surgery; ATTEND Surgery
PROC: 0DTJ4ZZ Resection of Appendix, Percutaneous Endoscopic Approach (ICD-10-PCS; principal; 2020-03-31 11:45)
DX: K35.890 Other acute appendicitis without perforation or gangrene (principal); K66.0 Peritoneal adhesions (postprocedural) (postinfection); K42.9 Umbilical hernia without obstruction or gangrene
CPT/HCPCS: 36415; 44970; 74177; 80053; 81001; 81025; 83690; 85025; 99284; 99285; A9270; G0378; J0131; J1170; J2765; J7120; Q9967; 81003; 87086